=== PATIENT | female | born 1970 | race Caucasian/White ===

== ENCOUNTER 2023-03-31 08:21 | Emergency (ER) | payer BC ==
[~2023-03-31] VITALS: Ht 177.8 cm; Wt 97.5 kg
[2023-03-31 08:32] VITALS: BP 153/75
--- NOTE | 2023-03-31 08:37 | NUR ---
52YO FEMALE PT C/O THROBBING/SHARP R HAND PAIN XYESTERDAY. REPORTS HER CAT BIT AND LATCHED ONTO HER HAND WHILE TRYING TO BRING HER INSIDE THE HOUSE. STATES INCREASE IN SWELLING SINCE AND WATERY DISHARGE. NO ACTIVE DRAINAGE AT THIS TIME. CAP REFILL <3 THROUGHOUT. UNABLE TO BEND R INDEX AND 2ND DIGIT. MILD RELIEF AFTER TYLENOL. DENIES N/V/D, FEVER OR CHILLS. PT AAOX4, HOB POSITIONED PER COMFORT HX: HTN NKA
[2023-03-31] MEDS ORDERED: BACITRACIN OINT 500 UNITS/GM PKT TP ONE (10:15)
[2023-03-31] MEDS ORDERED: IBUP-2213 PO (10:48)
[2023-03-31] MEDS ORDERED: AMOX-999 PO (10:48)
[2023-03-31 11:05] VITALS: BP 153/75
--- NOTE | 2023-03-31 11:06 | NUR ---
Patient discharged with v/s stable. Written and verbal after care instructions given and explained. Patient alert, oriented and verbalized understanding of instructions. Ambulatory with steady gait. All questions addressed prior to discharge. ID band removed. Patient advised to follow up with PMD. Rx of AMOXICILLIN, IBUPROFEN (SENT) given. Patient educated on indication of medication including possible reaction and side effects. Opportunity to ask questions provided and answered.
--- NOTE | 2023-03-31 11:57 | NUR ---
LATE ENTRY - ANIMAL BITE FAX CONFIRMED
== END 2023-03-31 11:05 | disposition home or self-care (01) ==
LOC: MED 08:21
DX: S60.511A Abrasion of right hand, initial encounter (principal); W55.01XA Bitten by cat, initial encounter; Y93.89 Activity, other specified; Y92.89 Other specified places as the place of occurrence of the external cause; Y99.8 Other external cause status
CPT/HCPCS: 99283